=== PATIENT | female | born 2005 | race Hispanic/Latino ===

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

== ENCOUNTER 2024-07-06 11:24 | Emergency (ER) | payer OTHER ==
[2024-07-06 12:37] LABS: Specific Gravity 1.012 (1.005-1.030)
[2024-07-06 12:49] LABS: Anion Gap 10.6 mEq/L (5.0-15.0); Potassium 3.6 mEq/L (3.5-5.1)
[2024-07-06 13:16] LABS: Hematocrit 19.3 % (36.0-45.0); MCH 14.5 pg (27.0-35.0); MCHC 26.5 g/dL (32.0-36.0); MCV 54.6 fL (80-100); MPV 8.3 fL (7.6-11.3); Platelets 560 thou/uL (152-406); RBC Red Blood Cell Count 3.54 M/uL (3.86-4.86); Red Cell Distribution Width 22.2 % (12.1-15.2)
[2024-07-06 13:18] LABS: Hemoglobin 5.1 g/dL (12.0-15.0)
[2024-07-06 13:33] LABS: Anisocytosis 3+; Blood Morphology Comment NOTED (NOT SEEN); Differential Total Cells Count 100; Eosinophils 1 % (0-3); Hypersegmented Neutrophils PRESENT; Hypochromasia 3+; Lymphocytes 23 % (15-42); Microcytosis 3+; Monocytes 2 % (0-10); Nucleated Red Blood Cells 2 /100WBC; Platelet Estimate INCR; Segmented Neutrophils 74 % (40-80)
[2024-07-06 13:34] LABS: Ovalocytes 1+
[2024-07-06] MEDS ORDERED: NA CHLORIDE 0.9% 250 ML ONE (14:00)
--- NOTE | 2024-07-06 18:17 | ER ---
Nurse's Notes [facility] Name: Layne Perez Age: 19 yrs Sex: Female : 2005 Arrival Date: 07/06/2024 Time: 11:24 Bed 6 Private MD: Diagnosis: Anemia, unspecified;Iron deficiency anemia, unspecified Presentation: 07/06 11:44 Chief complaint: Parent and/or Guardian states: pt has hx of endometriosis, on iw control and has regular periods now, she had labs drawn yesterday , got a call today to come to ER, Hgb was at 5 , has previous blood transfusions in past. Coronavirus screen: At this time, the client does not indicate any symptoms associated with coronavirus-19. Ebola Screen: No symptoms or risks identified at this time. Initial Sepsis Screen: Does the patient meet any 2 criteria? No. Patient's initial sepsis screen is negative. Does the patient have a suspected source of infection? No. Patient's initial sepsis screen is negative. Risk Assessment: Do you want to hurt yourself or someone else? Patient reports no desire to harm self or others. Onset of symptoms was July 06, 2024. 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 - Infectious Disease History:: Denies. - Social history:: Smoking status: Patient denies any tobacco usage or history of. Screenin:18 [facility] ED Fall Risk Assessment (Adult) History of falling in the last 3 months, me1 including since admission No falls in past 3 months (0 pts) Confusion or Disorientation No (0 pts) Intoxicated or Sedated No (0 pts) Impaired Gait No (0 pts) Mobility Assist Device Used No (0 pt) Altered Elimination No (0 pt) Score/Fall Risk Level 0 - 2 = Low Risk Maintained a safe environment, Provided non-skid footwear, Hourly rounding (assess needs \T\ fall precautionary measures) done. Abuse screen: Denies threats or abuse. Nutritional screening: No deficits noted. Tuberculosis screening: No symptoms or risk factors identified. Assessment: 13:18 General: Appears comfortable, well groomed, well developed, well nourished, Behavior is me1 calm, cooperative, appropriate for age, Reports pt has hx of endometriosis, on control and has regular periods now, she had labs drawn yesterday , got a call today to come to ER, Hgb was at 5 , has previous blood transfusions in past. Pain: Denies pain. Neuro: Level of Consciousness is awake, alert, obeys commands, Oriented to person, place, time, situation, Appropriate for age. Cardiovascular: Patient's skin is warm and dry. Respiratory: Airway is patent Respiratory effort is even, unlabored, Respiratory pattern is regular, symmetrical. GI: No signs and/or symptoms were reported involving the gastrointestinal system. : No signs and/or symptoms were reported regarding the genitourinary system. EENT: No signs and/or symptoms were reported regarding the EENT system. Derm: Skin is intact, is healthy with good turgor, Skin is pale. Musculoskeletal: No signs and/or symptoms reported regarding the musculoskeletal system. Vital Signs: 11:44 BP 116 / 61; Pulse 85; Resp 16; Temp 98.4(O); Pulse Ox 100% on R/A; Weight 99.34 kg; iw Height 5 ft. 4 in. ; Pain 0/10; 13:30 BP 108 / 59; Pulse 91; Resp 16; Pulse Ox 100% ; me1 14:00 BP 105 / 68; Pulse 86; Resp 16; Pulse Ox 100% ; me1 15:00 BP 107 / 58; Pulse 75; Resp 16; Pulse Ox 100% ; me1 16:00 BP 124 / 44; Pulse 94; Resp 16; Pulse Ox 100% ; me1 17:00 BP 107 / 57; Pulse 79; Resp 16; Pulse Ox 100% ; me1 18:00 BP 114 / 50; Pulse 84; Resp 16; Pulse Ox 99% ; me1 18:30 BP 122 / 54; Pulse 77; Resp 16; Temp 97.9; Pulse Ox 96% ; me1 11:44 Body Mass Index 37.59 (99.34 kg, 162.56 cm) iw 11:44 Pain Scale: Adult iw ED Course: 11:28 Patient arrived in ED. mr 11:34 Adebayo Peoples MD is Attending Physician. ec2 11:46 Triage completed. iw 11:46 Arm band placed on. iw 12:06 Niyah Correia, RN is Primary Nurse. me1 12:26 CBC with Diff Sent. me1 12:26 BMP Sent. me1 12:26 Type And Screen Sent. me1 12:26 Test, Urine Sent. me1 12:26 Initial lab(s) drawn, by ia, sent to lab. Inserted saline lock: 22 gauge in right ia1 antecubital area, using aseptic technique. 13:18 Patient has correct armband on for positive identification. Bed in low position. Call ia1 light in reach. Side rails up X 1. Provided Education on: POC. Verbalized understanding. . Client placed on continuous cardiac and pulse oximetry monitoring. NIBP monitoring applied. Pulse ox on. NIBP on. 13:18 No provider procedures requiring assistance completed. me1 14:49 Bb Add On Sent. me1 14:49 Packed RBC Leukored Sent. me1 18:48 IV discontinued, intact, bleeding controlled, No redness/swelling at site. Pressure me1 dressing applied. Administered Medications: No medications were administered Medication: 13:18 VIS not applicable for this client. me1 Outcome: 18:17 Discharge ordered by MD. ec2 18:48 Discharged to home ambulatory, with family, me1 18:48 Condition: stable 18:48 Discharge instructions given to patient, Instructed on discharge instructions, follow up and referral plans. Demonstrated understanding of instructions, follow-up care, 18:48 Patient left the ED. ia1 Signatures: Brooke Holman, Reg Reg mr Marisabel Espitia RN RN Niyah Correia RN RN ia1 Adebayo Peoples MD MD ec2 Corrections: (The following items were deleted from the chart) 11:46 11:44 Pulse 85bpm; Resp 16bpm; 99.34 kg; Height 5 ft. 4 in.; BMI: 37.5; Pain 0/10, iw Adult; iw 11:47 11:44 BP 116 / 61; Pulse 85bpm; Resp 16bpm; Pulse Ox 100% RA; 99.34 kg; Height 5 ft. 4 iw in.; BMI: 37.5; Pain 0/10, Adult; iw 11:48 11:44 Chief complaint: Parent and/or Guardian states: pt has hx of endometriosis, had iw labs drawn yesterday , got a call today to come to ER, Hgb was at 5 , has previous blood transfusions in past iw 13:18 11:44 Chief complaint: Parent and/or Guardian states: pt has hx of endometriosis, on me1 control and has regular periods now, she had labs drawn yesterday , got a call today to come to ER, Hgb was at 5 , has previous blood transfusions in past iw
--- NOTE | 2024-07-06 18:17 | EDPHYS ---
Physician Documentation [facility] Name: Layne Perez Age: 19 yrs Sex: Female : 2005 Arrival Date: 07/06/2024 Time: 11:24 Bed 6 Private MD: ED Physician Adebayo Peoples HPI: 07/06 11:56 This 19 yrs old Female presents to ER via Ambulatory with complaints of ec2 Abnormal Lab Results. 11:56 Patient arrives today for evaluation of anemia. Patient with history of anemia, reports ec2 that she had outpatient labs and was told that she was unable to come to the ED.. 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 - Infectious Disease History:: Denies. - Social history:: Smoking status: Patient denies any tobacco usage or history of. ROS: 12:00 Constitutional: as per hpi ec2 Exam: 12:00 Constitutional: GEN: NAD Head: atraumatic Eyes: EOMI Ears: External ears are ec2 normal. CV: regular rate LUNGS: no respiratory distress ABD: non-distended SKIN: no evidence of rashes MSK: no evidence of trauma Vital Signs: 11:44 BP 116 / 61; Pulse 85; Resp 16; Temp 98.4(O); Pulse Ox 100% on R/A; Weight 99.34 kg; iw Height 5 ft. 4 in. ; Pain 0/10; 13:30 BP 108 / 59; Pulse 91; Resp 16; Pulse Ox 100% ; me1 14:00 BP 105 / 68; Pulse 86; Resp 16; Pulse Ox 100% ; me1 15:00 BP 107 / 58; Pulse 75; Resp 16; Pulse Ox 100% ; me1 16:00 BP 124 / 44; Pulse 94; Resp 16; Pulse Ox 100% ; me1 17:00 BP 107 / 57; Pulse 79; Resp 16; Pulse Ox 100% ; me1 18:00 BP 114 / 50; Pulse 84; Resp 16; Pulse Ox 99% ; me1 18:30 BP 122 / 54; Pulse 77; Resp 16; Temp 97.9; Pulse Ox 96% ; me1 11:44 Body Mass Index 37.59 (99.34 kg, 162.56 cm) iw 11:44 Pain Scale: Adult iw MDM: 12:00 Data reviewed: vital signs. ED course: Patient arrives today for evaluations of anemia. ec2 Examination is unremarkable. Will obtain lab work, type and screen. Suspect patient's chronic anemia and history of vaginal bleeding as a cause of the patient's anemia today. No other evidence of bleeding. . 13:29 ED course: Hemoglobin of 5.1, will transfuse 2 units of blood. . ec2 18:17 Patient medically screened. ec2 07/06 11:35 Order name: CBC with Diff; Complete Time: 14:57 ec2 07/06 11:35 Order name: BMP; Complete Time: 13:00 ec2 07/06 11:35 Order name: Type And Screen ec2 07/06 11:35 Order name: Test, Urine; Complete Time: 13:00 ec2 07/06 13:20 Order name: Manual Differential; Complete Time: 14:57 EDMS 07/06 13:32 Order name: Bb Add On bd 07/06 13:41 Order name: Packed RBC Leukored EDMS 07/06 13:00 Order name: Labs - recollect needed: recollect lavender top; Complete Time: 13:13 bd 07/06 13:29 Order name: Transfuse; Complete Time: 14:49 ec2 Administered Medications: No medications were administered Disposition Summary: 07/06/24 18:17 Discharge Ordered Notes: Location: Home ec2 Condition: Stable ec2 Diagnosis - Anemia, unspecified ec2 - Iron deficiency anemia, unspecified ec2 Followup: ec2 - With: Private Physician - When: - Reason: Re-evaluation by your physician Discharge Instructions: - Discharge Summary Sheet ec2 - Iron Deficiency Anemia, Adult ec2 - Anemia ec2 Forms: - Work release form ec2 - Medication Reconciliation Form ec2 - Antibiotic Education ec2 - Prescription Opioid Use ec2 - Patient Portal Instructions ec2 - Leadership Thank You Letter ec2 Critical care time excluding procedures: 13:29 Critical care time: Bedside Care: 30 minutes. Total time: 30 minutes ec2 Signatures: Dispatcher [employer] Laura De La Torre Irene, RN RN iw Corral, Edwin, MD MD ec2 Corrections: (The following items were deleted from the chart) 11:36 11:36 CBC+H.LAB.BRZ ordered. EDMS EDMS 11:36 11:36 BASIC METABOLIC PANEL+C.LAB.BRZ ordered. EDMS EDMS 11:36 11:36 TYPE AND SCREEN+BB.LAB.BRZ ordered. EDMS EDMS 11:36 11:36 Test, Urine+UC.LAB.BRZ ordered. EDMS EDMS
[2024-07-06 20:44] VITALS: BP 122/54; TEMP 97.9; O2SAT 96
== END 2024-07-06 18:48 | disposition home or self-care (01) ==
LOC: ER 11:24
PROC: 30233N1 Transfusion of Nonautologous Red Blood Cells into Peripheral Vein, Percutaneous Approach (ICD-10-PCS; principal; 2024-07-06)
DX: D50.9 Iron deficiency anemia, unspecified (principal)
CPT/HCPCS: 85025; 80048; 36415; 86900; 86850; 81025; 86901; 86920 ×2; 36430; P9016 ×2; J7050